=== PATIENT | male | born 1990 | race Caucasian/White ===

== ENCOUNTER 2024-10-25 17:10 | Emergency (ER) | payer OTHER, SELFPAY ==
--- OUTSIDE RECORDS SUMMARY | 2024-10-25 17:12 | XMS_ITS | Encounter Summary ---
Author Organization [facility] Address Formerly [facility], later [facility] [place] [address] Care Team Providers Care Oyster Planter Name Role Phone Alyssa Baeza APRN Primary Care Provider [phone]- [phone] Encounter Details Date Type Department Care Team (Late st Contact Info) Description 07/14/2024 MobileDay Message Enc [facility] Family & Internal Medicine [facility] [address] [place] [address] Alyssa Baeza APRN [address] [address] Dry mouth Social History Tobacco Use Types Packs/Day Years Used Date Smoking Tobacco: Former Cigarettes 0.5 5 0 07/24/2015 - 07/23/2020 Smokeless Tobacco: Never Comments:Quit in 2020 Alcohol Use Standard Drinks/Week Comments Yes 3.3 (1 standard drink = 0.6 oz p ure alcohol) socially PHQ-2 Answer Date Recorded Patient Health Questionnaire-2 Score 0 04/12/2024 Education Answer Date Recorded What is the highest level of school you have completed or the highest degree you have received? 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 Answer Date of Assessment Author Status No 08/02/2021 10:48 PM CDT Acti ve * Do you have serious difficulty walking or climbing stairs? Answer Date of Assessment Author Status No 08/02/2021 10:48 PM CDT Mynor Leach RN Active * Do you have difficulty dressing or bathing? Answer Date of Assessment Author Status No 08/02/2021 10:48 PM CDT Mynor Leach RN Active * Because of a physical, mental, or emotional condition, do you have difficulty doing errands alone such as visiting a doctor's office or shopping? Answer Date of Assessment Author Status No 08/02/2021 10:48 PM CDT Mynor Leach RN Active documented as of this encounter Mental Status * Because of a physical, mental, or emotional condition, do you have serious difficulty concentrating, remembering, or making decisions? Answer Entry Date Author Status No 08/02/2021 10:48 PM CDT Mynor Leach RN Active documented in this encounter Plan of Treatment Not on file documented as of this encounter Goals Goal Patient Goal Type Associated Problems Recent Progress Patient-Stated? Author Health - patient able to perform ADLs independently General No Jelly Rizvi RN documented as of this encounter Visit Diagnoses Not on filedocumented in this encounter Additional Health Concerns Assessment Noted Time PHQ-9 Depression Total Score: 0 10/31/19 21 2:02 PM CDT documented as of this encounter Care Teams Oyster Planter Relationship Specialty Start Date End Date Alyssa Baeza APRN [address] [place] [address] PCP - General NURSE PRACTITIONER 03/29/24 documented as of this encounter
--- OUTSIDE RECORDS SUMMARY | 2024-10-25 17:12 | XMS_ITS | Referral Summary ---
Author Organization [address] Address [address] [place] [address] Care Team Providers Care Keno Writer/Runner Name Role Phone Aryan Alyssa Candida KIM Primary Care Provider +1- [phone] Allergies No known active allergies Medications predniSONE (DELTASONE) 10 mg tabletIndication s:Facial swelling 2 tabs po BID x 5 days, then 1 tab po BID x 3 days, then 1 tab po every day x 3 days 29 tablet 10/03/2022 Active Active Problems Problem Noted Date Diagnosed Date Facial swelling 10/04/2022 Deviated nasal septum 10/04/2022 Hypertrophy of both inferior nasal turbinates Social History Tobacco Use Types Packs/Day Years Used Date Smoking Tobacco: Former Cigarettes Smokeless Tobacco: Never Tobacco Cessation:Counseling Given: Not Answered Personal Safety Answer Date Recorded Getting School Help Needed Not on file 05/30 Sex and Gender Information Value Date Recorded Sex Assigned at Not on file 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 Gender Identity Not on file Sexual Orientation Not on file Last Filed Vital Signs Vital Sign Reading Time Taken Comments Blood Pressure - - Pulse - - Temperature - - Respiratory Rate 18 10/03/2022 1:33 PM CDT Oxygen Saturation - - Inhaled Oxygen Concentration - - Weight 83.9 kg (185 lb) 10/03/2022 1:33 PM CDT Height 170.2 cm (5' 7) 10/03/2022 1:33 PM CDT Body Mass Index 28.98 10/03/2022 1:33 PM CDT Plan of Treatment Not on file Insurance CMR Care Teams Keno Writer/Runner Relationship Specialty Start [place] [address] [place] [address] PCP - General Nurse Practitioner 07/15/24
--- OUTSIDE RECORDS SUMMARY | 2024-10-25 17:12 | XMS_ITS | Clinical Summary ---
Author Organization [facility] Address [address] [place] [address] Care Team Providers Care Client Development Manager Name Role Phone Alyssa Baeza LISA Primary Care Provider [phone]- [phone] Allergies No known active allergies Medications vitamin D3, cholecalciferol , 1.25 MG (02732 UT) capsuleIndicati ons:Vitamin D deficiency Take 1 capsule (50,000 Units total) by mouth weekly. 13 capsule 1 2 Active Additional Information Patient not taking.Reported on 10/11/2024 diclofenac EC (VOLTAREN) 75 MG tabletIndicatio ns:Chronic neck pain Take 1 tablet (75 mg total) by mouth 2 (two) times daily. 60 tablet 5 Active Additional Information Patient not taking.Reported on 10/11/2024 pantoprazole EC (PROTONIX) 40 MG tabletIndicatio ns:Gastroesopha geal reflux disease, unspecified whether esophagitis present Take 1 tablet (40 mg total) by mouth daily. 90 tablet 3 5 Active methylPREDNISol one, JULISSA, (MEDROL DOSEPAK) 4 MG tabletIndicatio ns:Chronic neck pain 6 TABLETS ON DAY ONE, 5 TABLETS DAY TWO, 4 TABLETS DAY THREE, 3 TABLETS DAY FOUR, 2 TABLETS DAY FIVE, AND 1 TABLET DAY SIX 1 each 5 025 Discontin ued(Thera py completed ) Active Problems Problem Noted Date Diagnosed Date Hypertrophy of both inferior nasal turbinates Facial swelling 10/04/2022 Deviated nasal septum 10/04/2022 Nausea and vomiting, unspecified vomiting type 1 05/27/2021 Overview (03/26/2022): Added automatically from request for surgery [id number] Vitamin D deficiency 02/27/2022 S/P appendectomy 08/10/2021 Overweight (BMI 25.0-29.9) 08/10/2021 Appendicitis 08/02/2021 Hand pain, left 06/29/2021 Eczema of scalp 09/11/2014 Dermatitis 05/27/2013 Encounters Date Type Department Care Team Description 10/20/2024 Telephone [facility] Family & Internal Medicine [address] [address] (SCAN) 10/11/2024 10:20 AM CDT Office Visit [facility] Internal [address] [address] Alyssa Baeza APRN Follow Up (Discuss abdominal issues and pain X 1 week) 10/11/2024 Travel 10/06/2024 MyChart Message Enc [facility] Internal [address] [address] Alyssa Baeza APRN Lower stomach tenderness from Last 3 Months Immunizations Immunization Administration Dates Next Due Dtap 08/07/1995 Dtap (Generic) 08/07/1995 Dtp 05/25/1991,,1990,1990 Dtp (Generic) 05/25/1991, 1,1990,1990 Fluzone Adult - >Age 3 (Pref illed Syringe) 02/01/2021(Deferred: Patient Refused) Hepatitis B Pediatric 09/01/2000,02/25/2000,12/30 Hib 07/27/1991,05/25/1991,1990 Hib (Generic) 07/27/1991,05/25/1991,1990 MMR 08/07/1995,07/27/1991 MMR (MMRII) 08/07/1995,07/27/1991 Opv 08/07/1995, 2,1990,1990 PFIZER COVID-19 (ORIGINAL FORMULATION, PURPLE CAP) mRNA, LNP-S, PF, 30 MCG/0.3 ML DOSE 12/22/2020,12/01/2020 Polio Opv (Generic) 08/07/1995, 2,1990,1990 Tdap (Adacel) 09/25/2021 Family History Medical History Relation Comments None Father None Mother Relation Status Comments Father Alive Mother Alive Social History Tobacco Use Types Packs/Day Years Used Date Smoking Tobacco: Former Cigarettes 0.5 5 0 07/24/2015 - 07/23/2020 Smokeless Tobacco: Never Tobacco Cessation:Counseling Given: Yes Comments:Quit in 2020 Alcohol Use Standard Drinks/Week [...] Sex Assigned at Male 04/13/2024 7:52 AM 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 Legal Sex Male 6:16 PM CDT Gender Identity Not on file Sexual Orientation Not on file 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 Not on file Not on file Last Filed Vital Signs Vital Sign Reading Time Taken Comments Blood Pressure 123/75 10/11/2024 10:35 AM CDT Pulse 55 10/11/2024 10:35 AM CDT Temperature 36.6 C (97.8 F) 10/11/2024 10:35 AM CDT Respiratory Rate 18 10/11/2024 10:35 AM CDT Oxygen Saturation 99% 10/11/2024 10:35 AM CDT Inhaled Oxygen Concentration - - Weight 86.6 kg (191 lb) 10/11/2024 10:35 AM CDT Height 172.7 cm (5' 8) 10/11/2024 10:35 AM CDT Body Mass Index 29.04 10/11/2024 10:35 AM CDT Plan of Treatment Health Maintenance Due Date Last Done Comments Annual Physical 1993 Hepatitis C 02/24/2008 HPV Vaccines (1 - 3-dose SCDM series) 2017 COVID-19 Vaccine (3 - season) 2023 12/22/2020, 12/01/2020 DTaP, Tdap and Td Vaccines (4 - Td or Tdap) 09/26/2031 09/25/2021, 08/07/1995, 08/07/1995, Additional history exists Hepatitis B Vaccines Completed 09/01/2000, 02/25/2000, 01/21/2000 PHQ-2 (Physician [place]) Completed 04/12/2024 Meningococcal B Vaccine Aged Out No l onger eligible based on patient's age to complete this topic Meningococcal Vaccine Aged Out No erika laith eligible based on patient's age to complete this topic Pneumococcal Vaccine: Pediatrics (0 to 5 Years) and At-Risk Patients (6 to 49 Years) Aged Out No longer eligible based on patient's age to complete this topic RSV Immunizations Under 20 Months Aged Out No longer eligible based on patient's age to complete this topic Goals Goal Patient Goal Type Associated Problems Recent Progress Patient-Stated? Author Health - patient able to perform ADLs independently General No Jelly Rizvi, RN Insurance [employer] Advance Directives * Full Code (Latest Code Status on File) Date Activated Date Inactivated Comments 08/03/2021 8:36 AM 08/03/2021 7:49 PM Care Teams Client Development Manager Relationship Specialty Start Date End Date Alyssa Baeza APRN [address] [address] PCP - General NURSE PRACTITIONER 03/29/24
--- OUTSIDE RECORDS SUMMARY | 2024-10-25 17:12 | XMS_ITS | Clinical Summary ---
Author Organization [address] Address [address] [place] [address] Care Team Providers Care Salvage Determiner Name Role Phone Aryan Alyssa Tirado NP Primary Care Provider +1- [phone] Allergies No known active allergies Medications predniSONE (DELTASONE) 10 mg tabletIndication s:Facial swelling 2 tabs po BID x 5 days, then 1 tab po BID x 3 days, then 1 tab po every day x 3 days 29 tablet 10/03/2022 Active Active Problems Problem Noted Date Diagnosed Date Facial swelling 10/04/2022 Deviated nasal septum 10/04/2022 Hypertrophy of both inferior nasal turbinates Surgical History Surgery Date Site/Laterality Comments EAR SURGERY Medical History Medical History Date Comments Neck mass Right neck mass Ear problems Family History Medical History Relation Name Comments No Known Problems Father No Known Problems Mother Relation Name Status Comments Father Mother Social History Tobacco Use Types Packs/Day Years Used Date Smoking Tobacco: Former Cigarettes Smokeless Tobacco: Never Tobacco Cessation:Counseling Given: Not Answered Personal Safety Answer Date Recorded Getting School Help Needed Not on file 05/30 Sex and Gender Information Value Date Recorded Sex Assigned at Not on file Legal Sex Male 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 Gender Identity Not on file Sexual Orientation Not on file Obstetrics History Last Filed Vital Signs Vital Sign Reading [...] 10/03/2022 1:33 PM CDT Plan of Treatment Health Maintenance Due Date Last Done Comments Depression Screening 1990 Hepatitis C Screening 1990 Varicella Vaccines (1 of 2 - 13+ 2-dose series) 2003 Regular Well Visit/Exam 18-64 02/24/2008 HPV Vaccines (1 - 3-dose SCDM series) 2017 Covid-19 Vaccine (3 - season) 2023 12/22/2020, 12/01/2020 Influenza Vaccine (#1) 2024 DTaP/Tdap/Td Vaccine (7 - Td or Tdap) 09/26/2031 09/25/2021, 08/07/1995, 05/25/1991, Additional history exists Hepatitis B Screening Completed 09/01/2000 , 02/25/2000, 01/21/2000 Pneumococcal vaccine <65 Aged Out No longer eligible based on patient's age to complete this topic Insurance CMR Care Teams Salvage Determiner Relationship Specialty [place] [address] [place] [address] PCP - General Nurse Practitioner 07/15/24
--- OUTSIDE RECORDS SUMMARY | 2024-10-25 17:12 | XMS_ITS | Encounter Summary ---
Author Organization [facility] Address [facility] [place] [address] Care Team Providers Care College Scouting Coordinator Name Role Phone Alyssa Baeza APRN Primary Care Provider +1- [phone] Reason for Visit * Reason Onset Date Comments CT (SCAN) 10/20/2024 Encounter Details Date Type Department Care Team (Late st Contact Info) Description 10/20/2024 Telephone [facility] Family & Internal Medicine 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 The denial letter is scanned in the chart. Per denial: There is no history of a recent chest x-ray, abdominal ultrasound or abdominal x-rays. There are noabnormal lab values or significant symptom profile. It's hard to tell from the letter but it appears that [id number] or appeal are options. Jose Miguel phone #[phone], case #[id number]. The patient is scheduled for tomorrow morning. We will try to reach him to inform him of the denialand advise him to follow up with your office. If a [id number] or appeal will not be done or if done but imaging still isn't approved, please inform the patient and advise of next step. If you're able to get this approved, please let us know. * Melissa Ramirez - 10/20/2024 4:33 PM CDT Pt called as he got a called from the imaging department as the CT scan for tomorrow was not approved by the insurance. Patient will like to know what does the provider wants him to do. Please advise. documented in this encounter Plan of Treatment [...] documented as of this encounter Care Teams College Scouting Coordinator Relationship Specialty Start Date End Date Alyssa Baeza APRN [address] [facility] [address] [place] [address] PCP - General NURSE PRACTITIONER 03/29/24 documented as of this encounter
[2024-10-25 17:23] VITALS: BP 120/76; PULSE 61; RESP 18; TEMP 36.7; O2SAT 100
--- NOTE | 2024-10-25 17:35 | ED_ITS ---
HPI - URI/Sore Throat General Chief Complaint: Upper Respiratory Infection Stated Complaint: Strep Test Time Seen by Provider: 10/25/24 17:50 Source: patient and RN notes reviewed Mode of arrival: ambulatory Limitations: no limitations History of Present Illness HPI Narrative: 34-year-old male presents with concern for exposure to strep throat, tongue discomfort, dry tongue with a white film. Reports his has similar symptoms and his son was diagnosed with strep today. He denies runny nose, stuffy nose, cough, headache, upset stomach, fever. MD elicited complaint: other (Exposure to strep) Related Data Home Medications ?Medication ?Instructions ?Recorded ?Confirmed ?Last Taken ?Type pantoprazole 40 mg tablet,delayed 40 mg PO QAM 08/02/24 Unknown History release Allergies Allergy/AdvReac Type Severity Reaction Status Date / Time No Known Allergies Allergy Verified 10/25/24 17:24 Review of Systems Review of Systems: CONSTITUTIONAL: Denies malaise, chills, sweats, or fever. EYES: Denies visual changes, redness, or discharge. ENT: Denies rhinorrhea, congestion, sinus pain, otalgia. Reports tongue discomfort and mild sore throat. CARDIOVASCULAR: Denies chest pain, palpitations, or edema. RESPIRATORY: Denies cough. Denies dyspnea. GASTROINTESTINAL: Denies abdominal pain, nausea, vomiting, diarrhea SKIN: Denies rash or itching. MUSCULOSKELETAL: Denies myalgia. NEUROLOGIC: Denies headache. All systems reviewed & are unremarkable except as noted in HPI and below PMFSH Social History Social History Smoking status: Current some day smoker Alcohol intake: never Substance use: current Substance use type: marijuana Comments At time of signature, agree with nursing past medical, surgical, social and family history. There is no relevant family history pertinent to the presenting complaint Exam Narrative: GENERAL: Well-appearing, well-nourished, and in no acute distress. HEAD: Normocephalic EYES: PERRLA, conjunctivae clear ENT: Nares clear. Mucous membranes moist. TM pearly cosme with sharp light reflex bilaterally; no tragal tenderness. Oropharynx not erythematous without lesions. White coating noted to the tongue. Tonsils not enlarged and without exudate, no drooling, no hoarseness, no trismus, uvula midline. NECK: Supple. No lymphadenopathy CHEST: Clear to auscultation, breath sounds equal. No wheezing, rhonchi, rales, or stridor. No respiratory distress, speaks in full sentences. HEART: Regular rate and rhythm. No murmur heard. SKIN: Warm, dry, no rash. NEURO: Alert and oriented x3. PSYCH: Normal mood and affect Course Course Emergency Course: Patient is aware of diagnosis, understands and agrees to treatment plan. Anticipatory guidance given. Patient agrees to follow-up as directed and is aware of reasons to seek care at the emergency department. Portions of this record may have been created with voice recognition software Level of Care: Express Care Visit Vital Signs Vital signs: Vital Signs Temperature 98.0 F 10/25/24 17:23 Pulse Rate 61 10/25/24 17:23 Respiratory Rate 18 10/25/24 17:23 Blood Pressure 120/76 10/25/24 17:23 Pulse Oximetry 100 10/25/24 17:23 Oxygen Delivery Room Air 10/25/24 17:23 Temperature 98.0 F 10/25/24 17:23 Pulse Rate 61 10/25/24 17:23 Respiratory Rate 18 10/25/24 17:23 Blood Pressure 120/76 10/25/24 17:23 Pulse Oximetry 100 10/25/24 17:23 Oxygen Delivery Room Air 10/25/24 17:23 Reviewed. MDM - URI/Sore Throat MDM Narrative Medical decision making narrative: Differential diagnosis considered: Alaniz virus, strep pharyngitis, allergic rhinitis, upper respiratory tract infection, sinusitis, rhinosinusitis, nasopharyngitis. viral pharyngitis, otitis media, otitis externa, pneumonia, bronchitis, viral cough syndrome, viral syndrome, and influenza. Exam findings show no acute concerns or changes; patient is non-toxic appearing and is in no distress. Patient is appropriate for outpatient treatment and follow-up. Lab Data Attestation: I reviewed the patient's lab results. Critical Care Time Critical Care Time Critical Care Time: No Discharge Plan Discharge Clinical Impression: Thrush Patient Disposition: Home Condition: Stable Instructions: Oral Candidiasis (ED) Additional Instructions: 1) Please follow-up with your primary care doctor in the next 1-2 days. 2) If you have any urgent concerns please go to the ER. 3) Please take medications as prescribed and continue taking your home medications as usual. 4) Please read and follow information included in discharge instructions. Patient Language: Turkish Prescriptions: New nystatin 100,000 unit/mL suspension 5 ml PO QID 7 Days Qty: 140 0RF Rx Instructions: swish and swallow No Action pantoprazole 40 mg tablet,delayed release (DR/EC) 40 mg PO QAM Follow-up/Referrals: Aryan,Alyssa Araujo APRN [Primary Care Provider] - Time of Disposition: 18:02
[2024-10-25 17:52] LABS: EDSTREPNEGPOS1 Negative (Negative)
== END 2024-10-25 18:05 | disposition home or self-care (01) ==
PROVIDERS: Emergency Provider Nurse Practitioner; PCP Registered Nurse
DX: B37.0 Candidal stomatitis (principal); F17.200 Nicotine dependence, unspecified, uncomplicated; F12.90 Cannabis use, unspecified, uncomplicated
CPT/HCPCS: 87081; 87880; 99213; G0463